=== PATIENT | male | born 1975 | race Caucasian/White ===

== ENCOUNTER 2022-01-04 13:55 | Observation (INO) ==
[2022-01-04] MEDS ORDERED: Ondansetron 4 MG/2 ML VIAL IVP PRN ×3 (16:51→22:14)
[2022-01-04] MEDS ORDERED: 0.9 % Sodium Chloride 1,000 ML IVC SCH (17:00)
[2022-01-04] MEDS: Acetaminophen IV 1,000 MG/100 ML BAG IVPB SCH ×2 (17:16→18:16)
[2022-01-04] MEDS ORDERED: *HR* HYDROMORPHONE 2 MG/ML VIAL ONE (19:24)
[2022-01-04] MEDS ORDERED: *HR* Midazolam HCl 2 MG/2 ML VIAL ONE (19:24)
[2022-01-04] MEDS ORDERED: Lidocaine HCL 4 ML Topical Solution (Laryng-O-Jet Kit Sterile Pak) TP ONE (19:24)
[2022-01-04] MEDS ORDERED: Ondansetron 4 MG/2 ML VIAL ONE (19:24)
[2022-01-04] MEDS ORDERED: *HR* Propofol 200 MG/20 ML VIAL IVP ONE ×2 (19:24→21:06)
[2022-01-04] MEDS ORDERED: Lidocaine -MPF 2% 5 ML VIAL ONE (19:24)
[2022-01-04] MEDS ORDERED: *HR* Rocuronium Bromide 50 MG/5 ML VIAL ONE (19:24)
[2022-01-04] MEDS ORDERED: *HR* FentaNYL (PF) 100 MCG/2 ML VIAL ONE (19:24)
[2022-01-04] MEDS ORDERED: Albuterol 2.5 MG/3 ML NEBULIZER IH PRN (19:35)
[2022-01-04] MEDS ORDERED: *HR* FentaNYL (PF) 100 MCG/2 ML VIAL IVP PRN (19:35)
[2022-01-04] MEDS ORDERED: *HR* HYDROmorphone PF 0.5 MG/0.5 ML SYRINGE IVP PRN (19:35)
[2022-01-04] MEDS ORDERED: Ketorolac 30 MG/ML VIAL IVP PRN (19:35)
[2022-01-04] MEDS ORDERED: *HR* Labetalol 20 MG/4 ML SYRINGE IVP PRN (19:35)
[2022-01-04] MEDS ORDERED: Ipratropium Neb 0.5 MG NEBULIZER IH PRN (19:35)
[2022-01-04] MEDS ORDERED: *HR* OxyCODONE Immed Rel 5 MG TABLET PO PRN (19:35)
[2022-01-04] MEDS ORDERED: Sugammadex Sodium 200 MG/2 ML VIAL IV ONE (20:49)
[2022-01-04] MEDS ORDERED: *HR* OxyCODONE/APAP 5/325 TABLET PO PRN (22:14)
[2022-01-05] MEDS ORDERED: Piperacillin/Tazobactam 3.375 GM in 0.9 % Sodium Chloride Mini Bag 100 ML IVPB SCH
[2022-01-05] MEDS: Ketorolac 30 MG/ML VIAL IVP SCH ×2 (00:53→06:07)
[2022-01-05] MEDS: Piperacillin/Tazobactam 3.375 GM in 0.9 % Sodium Chloride Mini Bag 100 ML IVPB SCH ×2 (00:53→08:17)
[2022-01-05] MEDS: Gabapentin 400 MG CAPSULE PO SCH ×2 (02:50→08:17)
[2022-01-05 08:12] VITALS: BP 168/92; PULSE 51; TEMP 97.8; O2SAT 97
[2022-01-05] MEDS ORDERED: Metoprolol 100 MG TABLET PO SCH (09:00)
[2022-01-05] MEDS ORDERED: Valsartan 160 MG TABLET PO SCH (09:00)
[2022-01-05] MEDS ORDERED: Ibuprofen 800 MG TABLET PO STA (09:27)
== END 2022-01-05 11:06 | disposition home or self-care (01) ==
LOC: 3ANU
PROVIDERS: ADMIT Surgery; ATTEND Surgery